=== PATIENT | female | born 1980 | race Caucasian/White ===

== ENCOUNTER → 2017-04-04 09:34 | Outpatient (CLI) | payer OTHER, SELFPAY ==
[2017-04-04 11:26] LABS: Estradiol 102.1 pg/mL
== END ==
PROVIDERS: Visit Provider Obstetrics & Gynecology
DX: N92.5 Other specified irregular menstruation (principal)
CPT/HCPCS: 36415; 82670; 84144

== ENCOUNTER → 2018-01-03 13:15 | Outpatient (CLI) | payer OTHER, SELFPAY ==
[2018-01-08 07:48] LABS: HPV HC, High Risk Negative (Negative)
[2018-01-08 07:53] LABS: HPV Reflexed? YES, CHARGE PATIENT
== END ==
PROVIDERS: Visit Provider Obstetrics & Gynecology
DX: Z12.4 Encounter for screening for malignant neoplasm of cervix (principal)
CPT/HCPCS: 87624; 88175; G0145

== ENCOUNTER → 2018-06-22 10:43 | Outpatient (CLI) | payer OTHER, SELFPAY ==
[2018-06-24 08:43] LABS: HPV Reflexed? NOT INDICATED
== END ==
PROVIDERS: Visit Provider Obstetrics & Gynecology
DX: R87.610 Atypical squamous cells of undetermined significance on cytologic smear of cervix (ASC-US) (principal)
CPT/HCPCS: 88175; G0145